=== PATIENT | male | born 1975 | race Caucasian/White ===

== ENCOUNTER 2024-07-19 06:33 | Day surgery (SDC) | payer OTHER ==
[~2024-07-19] VITALS: Ht 160 cm; Wt 65.9 kg
[~2024-07-19 06:33] MED LIST: SODIUM CHLORIDE 0.9% 1,000 ML ONE
[2024-07-19] MEDS ORDERED: PROPOFOL 1% 20 ML VIAL IVP ONE (06:37)
[2024-07-19] MEDS ORDERED: LIDOCAINE/PF 2% 5 ML VIAL ONE (06:37)
[2024-07-19] MEDS: SODIUM CHLORIDE 0.9% 1,000 ML IV ONE (07:13)
[2024-07-19] MEDS ORDERED: FLUMAZENIL 0.1 MG/ML 5 ML VIAL IVP ONE (08:10)
[2024-07-19] MEDS ORDERED: SODIUM TETRADECYL SULFATE 3% 60 MG/2 ML VIAL IVP ONE (08:10)
[2024-07-19] MEDS ORDERED: NALOXONE HCL 0.4 MG/ML VIAL ONE (08:10)
[2024-07-19] MEDS ORDERED: EPINEPHrine 1:10,000 [1 MG/10 ML] SYRINGE ONE (08:10)
[2024-07-19] MEDS ORDERED: DiphenhydrAMINE HCL 50 MG/ML VIAL ONE (08:10)
[2024-07-19] MEDS ORDERED: ATROPINE SULFATE 0.1 MG/ML 10 ML SYRINGE IVP ONE (08:11)
[2024-07-19] MEDS ORDERED: SIMETHICONE DROPS 40 MG/0.6 ML SOLUTION 30 ML ONE (08:11)
== END 2024-07-19 10:00 | disposition home or self-care (01) ==
LOC: SURGERY 06:33
PROVIDERS: ATTEND Internal Medicine Gastroenterology
DX: K92.1 Melena (principal); K64.1 Second degree hemorrhoids; K63.89 Other specified diseases of intestine; Z87.891 Personal history of nicotine dependence; Z79.899 Other long term (current) drug therapy; Z98.890 Other specified postprocedural states
CPT/HCPCS: 45378; J2704; J3490; J7030; J0171; J0461; J1200; J2310